=== PATIENT | male | born 1985 | race Asian ===

== ENCOUNTER 2017-04-25 10:18 | Inpatient (IN) | payer MEDICAID ==
[~2017-04-25] VITALS: Ht 165.1 cm; Wt 64.0 kg
[2017-04-25] MEDS ORDERED: normal saline 1000ML IV soln IV ONE (10:30)
[2017-04-25] MEDS ORDERED: metoclopramide 5 mg/ml inj IV ONE (10:30)
[2017-04-25] MEDS ORDERED: ondansetron/PF 4mg/2ml inj IV ONE (10:30)
[2017-04-25] MEDS ORDERED: pantoprazole IV 80 MG in normal saline 100ml IV soln 100 ML IV ONE (10:40)
[2017-04-25] MEDS ORDERED: pantoprazole 40 MG vial IV ONE (10:45)
[2017-04-25 10:59] LABS: BASOPHILS % (AUTO) 0.1 % (0-1); EOSINOPHILS # (AUTO) 0.1 X10'3 (0-0.9); EOSINOPHILS % (AUTO) 0.7 % (0-6); HEMATOCRIT 47.1 % (42.0-52.0); HEMOGLOBIN 16.7 g/dl (14.0-17.9); LYMPHOCYTES # (AUTO) 0.4 X10'3 (1.1-4.8); LYMPHOCYTES % (AUTO) 2.5 % (21-51); MEAN CORPUSCULAR HEMOGLOBIN 31.1 PG (27.0-31.0); MEAN CORPUSCULAR HGB CONC 35.4 % (33.0-36.5); MEAN CORPUSCULAR VOLUME 87.8 FL (78-98); MEAN PLATELET VOLUME 9.2 FL (7.4-10.4); MONOCYTES # (AUTO) 1.1 X10'3 (0-0.9); MONOCYTES % (AUTO) 7.7 % (2-12); NEUTROPHILS # (AUTO) 12.5 X10'3 (1.8-7.7); PLATELET COUNT 303 X10'3 (140-440); RED BLOOD COUNT 5.36 X10'6 (4.70-6.10); RED CELL DISTRIBUTION WIDTH 12.8 % (11.5-14.5)
[2017-04-25 11:08] LABS: PROTHROMBIN TIME 10.5 SECONDS (9.0-12.0)
[2017-04-25] MEDS ORDERED: insulin regular, human 10 units/0.1 ml syringe IV ONE (11:10)
[2017-04-25 11:15] LABS: TOTAL CELLS COUNTED 100
[2017-04-25 11:16] LABS: PLATELET ESTIMATE NORMAL
[2017-04-25 11:19] LABS: ALANINE AMINOTRANSFERASE 38 U/L (12-78); ALBUMIN 3.8 G/DL (3.4-5.0); ALBUMIN/GLOBULIN RATIO 0.8 (1.1-1.5); ALKALINE PHOSPHATASE 73 IU/L (46-116); ANION GAP 33 (8-16); ASPARTATE AMINO TRANSFERASE 34 U/L (10-37); BILIRUBIN,TOTAL 1.3 MG/DL (0.1-1.0); BLOOD UREA NITROGEN 82 MG/DL (7-18); BUN/CREATININE RATIO 30.3 (5.4-32.0); CALCIUM 9.6 MG/DL (8.5-10.1); CHLORIDE 83 MMOL/L (99-107); CREATININE 2.71 MG/DL (0.60-1.10); ETHANOL < 0.010 GM/DL (0.0-0.010); POTASSIUM 4.3 MMOL/L (3.5-5.1); SODIUM 132 MMOL/L (135-145); TOTAL CARBON DIOXIDE 16.3 MMOL/L (24-32); TOTAL PROTEIN 8.5 G/DL (6.4-8.2); TROPONIN I < 0.04 NG/ML (0.0-0.05); eGFR 27 ML/MIN
[2017-04-25 11:21] LABS: GLUCOSE 677 MG/DL (70-104)
[2017-04-25] MEDS ORDERED: potassium Cl 20 mEq SR tablet PO PRN (11:25)
[2017-04-25] MEDS ORDERED: potassium Cl 40MEQ/NS 500ml 500 ML IV PRN ×2 (11:25)
[2017-04-25 11:45] LABS: CLARITY,URINE Clear (Clear); COLOR,URINE Yellow (Yellow); GLUCOSE, URINE >=1000 mg/dl (Neg); KETONES,URINE 80 mg/dl (Neg); LEUKOCYTE ESTERASE ,URINE Negative (Neg); NITRITES, URINE Negative (Neg); OCCULT BLOOD,URINE Moderate (Neg); PROTEIN,URINE 30 mg/dl (Neg); UROBILINOGEN,URINE 0.2 E.U/dL (0.2-1.0)
[2017-04-25 11:47] LABS: UA COLLECTION TYPE CLN CATCH MIDSTREAM
[2017-04-25 11:54] LABS: BACTERIA,URINE NONE SEEN /HPF (Neg); RBC,URINE 0-2 /HPF (0-2); SQUAMOUS EPITHELIAL CELL,UR NONE SEEN /LPF (FEW); WBC,URINE NONE SEEN /HPF (0-4)
[2017-04-25 11:55] LABS: COARSE GRANULAR CAST 0-3 /LPF (NEGATIVE)
[2017-04-25 12:00] LABS: ABG BASE EXCESS -14.7 mmol/L (-2.0-3.0); ABG HCO3 8.9 mmol/L (22.0-26.0); ABG OXYGEN SATURATION 95.2 % (95-98); ABG PCO2 (T) 18.4 mmHg (35.0-48.0); ABG PH (T) 7.301 (7.350-7.450); ABG PO2 (T) 85.4 mmHg (83-108); FCOHb 0.6 % (0.5-1.5); FMetHb 0.3 % (0.3-1.12); FO2Hb 94.3 % (94-100); TOTAL HEMOGLOBIN 15.9 G/dl (14.0-18.0)
[2017-04-25 12:01] LABS: URINE AMPHETAMINE SCREEN NEGATIVE (Neg); URINE BARBITUATE SCREEN NEGATIVE (Neg); URINE BENZODIAZEPINES SCREEN NEGATIVE (Neg); URINE CANNABINOID SCREEN NEGATIVE (Neg); URINE COCAINE SCREEN NEGATIVE (Neg); URINE METHADONE SCREEN NEGATIVE (Neg); URINE OPIATE SCREEN NEGATIVE (Neg); URINE PHENCYCLIDINE SCREEN NEGATIVE (Neg)
[2017-04-25] MEDS: insulin regular, DKA only 100 UNIT in normal saline 100ml IV soln 99 ML IV SCH ×6 (12:25→20:54)
[2017-04-25] MEDS ORDERED: LORazepam 2 mg/ml vial IV ONE (13:05)
[2017-04-25] MEDS ORDERED: normal saline 1000ML IV soln IVB ONE (13:05)
[2017-04-25] MEDS ORDERED: ondansetron/PF 4mg/2ml inj IV PRN (13:15)
[2017-04-25] MEDS ORDERED: thiamine inj. 100 MG in normal saline 100ml IV soln 100 ML IV ONE (13:15)
[2017-04-25] MEDS ORDERED: TETanus/Pertussis (Acell)/Diphther VAC/PF (Tdap-Adult) 0.5ml syringe IM ONE (13:20)
[2017-04-25] MEDS ORDERED: LIDOcaine 1.5% w/epinephrine 1:200,000 5ml ampul IJ ONE (13:20)
[2017-04-25] MEDS ORDERED: LORazepam 2 mg/ml vial IV PRN (13:25)
[2017-04-25] MEDS ORDERED: NO HOME MEDS (16:49)
[2017-04-25] MEDS: dextrose 5%-1/2 normal saline 1,000 ML IV SCH ×2 (16:51→23:15)
[2017-04-25 17:35] LABS: ABG BASE EXCESS -3.5 mmol/L (-2.0-3.0); ABG HCO3 20.1 mmol/L (22.0-26.0); ABG OXYGEN SATURATION 97.1 % (95-98); ABG PCO2 (T) 32.8 mmHg (35.0-48.0); ABG PH (T) 7.406 (7.350-7.450); ABG PO2 (T) 97.4 mmHg (83-108); ALLEN'S TEST Positive; FCOHb 0.7 % (0.5-1.5); FMetHb 0.3 % (0.3-1.12); FO2Hb 96.1 % (94-100); TOTAL HEMOGLOBIN 15.4 G/dl (14.0-18.0)
[2017-04-25 18:02] LABS: HEMOGLOBIN A1C 9.6 % (4.5-6.2)
[2017-04-25 18:17] LABS: ALBUMIN 3.3 G/DL (3.4-5.0); ANION GAP 15 (8-16); BLOOD UREA NITROGEN 55 MG/DL (7-18); BUN/CREATININE RATIO 28.8 (5.4-32.0); CALCIUM 8.5 MG/DL (8.5-10.1); CHLORIDE 105 MMOL/L (99-107); CREATININE 1.91 MG/DL (0.60-1.10); GLUCOSE 183 MG/DL (70-104); SODIUM 146 MMOL/L (135-145); TOTAL CARBON DIOXIDE 25.8 MMOL/L (24-32); eGFR 41 ML/MIN
[2017-04-25 18:21] LABS: POTASSIUM 3.6 MMOL/L (3.5-5.1)
[2017-04-25] MEDS: pantoprazole 40MG/NS 100ML BAG 100 ML IV SCH ×2 (19:13→23:17)
[2017-04-25] MEDS ORDERED: D5-1/2NS w/20 mEq potassium per 1000ml IV ONE (20:05)
[2017-04-25] MEDS ORDERED: Potassium Cl inj 20 MEQ in DEXTROSE 10 % AND 0.45 % NACL 1,000 ML IV SCH (20:25)
[2017-04-25] MEDS ORDERED: Potassium Cl inj 20 MEQ in dextrose 5%-1/2 normal saline 1,000 ML IV SCH (20:25)
[2017-04-25 20:30] VITALS: BP 158/101
[2017-04-25 21:46] LABS: ALBUMIN 2.8 G/DL (3.4-5.0); ANION GAP 15 (8-16); BLOOD UREA NITROGEN 48 MG/DL (7-18); BUN/CREATININE RATIO 28.4 (5.4-32.0); CALCIUM 8.1 MG/DL (8.5-10.1); CHLORIDE 107 MMOL/L (99-107); CREATININE 1.69 MG/DL (0.60-1.10); GLUCOSE 237 MG/DL (70-104); POTASSIUM 3.8 MMOL/L (3.5-5.1); SODIUM 146 MMOL/L (135-145); eGFR 47 ML/MIN
[2017-04-25 22:00] VITALS: BP 132/79
[2017-04-25] MEDS ORDERED: insulin regular, human vial - multi-dose ONE (23:04)
[2017-04-26] VITALS (7 sets, daily range): BP systolic 122–148; BP diastolic 77–92
[2017-04-26 01:55] LABS: ALBUMIN 2.9 G/DL (3.4-5.0); ANION GAP 11 (8-16); BLOOD UREA NITROGEN 36 MG/DL (7-18); BUN/CREATININE RATIO 25.4 (5.4-32.0); CALCIUM 8.2 MG/DL (8.5-10.1); CHLORIDE 111 MMOL/L (99-107); CREATININE 1.42 MG/DL (0.60-1.10); GLUCOSE 103 MG/DL (70-104); POTASSIUM 3.4 MMOL/L (3.5-5.1); SODIUM 149 MMOL/L (135-145); TOTAL CARBON DIOXIDE 27.3 MMOL/L (24-32); eGFR 58 ML/MIN
[2017-04-26] MEDS ORDERED: potassium Cl 20 mEq SR tablet PO STA (02:26)
[2017-04-26] MEDS ORDERED: dextrose ORAL solution 15 GM/59 ML bottle PO PRN ×2 (02:30)
[2017-04-26] MEDS ORDERED: MESSAGE TO PHARMACY PO ONE (02:30)
[2017-04-26] MEDS ORDERED: insulin glargine (Lantus) pen - multi-dose SQ ONE ×2 (02:30→02:45)
[2017-04-26] MEDS ORDERED: dextrose 50%-water 50ml dispensing syringe IV PRN ×2 (02:30)
[2017-04-26] MEDS ORDERED: glucagon, human recombinant 1mg kit SUBCUT PRN (02:30)
[2017-04-26] MEDS ORDERED: sodium chloride 0.45% 1,000 ML IV SCH (02:30)
[2017-04-26] MEDS ORDERED: insulin Lispro (HumaLOG) vial - multi-dose SQ ONE (02:45)
[2017-04-26] MEDS: pantoprazole 40MG/NS 100ML BAG 100 ML IV SCH ×2 (05:47→08:23)
[2017-04-26] MEDS: potassium Cl 20 mEq SR tablet PO PRN (08:22)
[2017-04-26] MEDS: insulin Lispro (HumaLOG) vial - multi-dose SQ SCH ×3 (08:30→19:09)
[2017-04-26 08:50] LABS: BASOPHILS % (AUTO) 0.1 % (0-1); EOSINOPHILS # (AUTO) 0.1 X10'3 (0-0.9); HEMATOCRIT 35.3 % (42.0-52.0); HEMOGLOBIN 12.5 g/dl (14.0-17.9); LYMPHOCYTES # (AUTO) 0.9 X10'3 (1.1-4.8); LYMPHOCYTES % (AUTO) 8.3 % (21-51); MEAN CORPUSCULAR HEMOGLOBIN 31.2 PG (27.0-31.0); MEAN CORPUSCULAR HGB CONC 35.3 % (33.0-36.5); MEAN CORPUSCULAR VOLUME 88.4 FL (78-98); MEAN PLATELET VOLUME 9.1 FL (7.4-10.4); MONOCYTES # (AUTO) 1.1 X10'3 (0-0.9); NEUTROPHILS # (AUTO) 8.2 X10'3 (1.8-7.7); NEUTROPHILS % (AUTO) 79.6 % (42-75); PLATELET COUNT 194 X10'3 (140-440); RED BLOOD COUNT 3.99 X10'6 (4.70-6.10); WHITE BLOOD COUNT 10.3 X10'3 (4.5-11.0)
[2017-04-26 09:14] LABS: ALANINE AMINOTRANSFERASE 28 U/L (12-78); ALBUMIN 2.7 G/DL (3.4-5.0); ALBUMIN/GLOBULIN RATIO 0.8 (1.1-1.5); ALKALINE PHOSPHATASE 46 IU/L (46-116); ANION GAP 11 (8-16); ASPARTATE AMINO TRANSFERASE 46 U/L (10-37); BILIRUBIN,TOTAL 0.7 MG/DL (0.1-1.0); BLOOD UREA NITROGEN 26 MG/DL (7-18); BUN/CREATININE RATIO 20.8 (5.4-32.0); CHLORIDE 106 MMOL/L (99-107); CREATININE 1.25 MG/DL (0.60-1.10); GLUCOSE 261 MG/DL (70-104); MAGNESIUM 2.2 MG/DL (1.5-2.4); PHOSPHORUS 1.9 MG/DL (2.3-4.5); POTASSIUM 4.1 MMOL/L (3.5-5.1); SODIUM 141 MMOL/L (135-145); TOTAL CARBON DIOXIDE 24.2 MMOL/L (24-32); TOTAL PROTEIN 6.1 G/DL (6.4-8.2); eGFR 67 ML/MIN
[2017-04-26] MEDS: HYDROcodone/acetaminophen 5mg/325mg tablet PO PRN ×2 (13:38→20:13)
[2017-04-26] MEDS ORDERED: insulin glargine (Lantus) pen - multi-dose SQ SCH ×2 (21:00)
[2017-04-27 06:00] VITALS: BP 139/85
[2017-04-27 06:02] LABS: BASOPHILS % (AUTO) 0.5 % (0-1); EOSINOPHILS # (AUTO) 0.1 X10'3 (0-0.9); HEMATOCRIT 35.1 % (42.0-52.0); HEMOGLOBIN 12.4 g/dl (14.0-17.9); LYMPHOCYTES # (AUTO) 1.1 X10'3 (1.1-4.8); LYMPHOCYTES % (AUTO) 20.5 % (21-51); MEAN CORPUSCULAR HEMOGLOBIN 31.3 PG (27.0-31.0); MEAN CORPUSCULAR HGB CONC 35.4 % (33.0-36.5); MEAN CORPUSCULAR VOLUME 88.4 FL (78-98); MEAN PLATELET VOLUME 8.8 FL (7.4-10.4); MONOCYTES # (AUTO) 0.6 X10'3 (0-0.9); NEUTROPHILS # (AUTO) 3.5 X10'3 (1.8-7.7); PLATELET COUNT 167 X10'3 (140-440); RED BLOOD COUNT 3.97 X10'6 (4.70-6.10); RED CELL DISTRIBUTION WIDTH 12.7 % (11.5-14.5); WHITE BLOOD COUNT 5.3 X10'3 (4.5-11.0)
[2017-04-27 06:16] LABS: INR 0.9 INR; PROTHROMBIN TIME 9.8 SECONDS (9.0-12.0)
[2017-04-27 06:22] LABS: ALANINE AMINOTRANSFERASE 43 U/L (12-78); ALBUMIN 2.6 G/DL (3.4-5.0); ALBUMIN/GLOBULIN RATIO 0.8 (1.1-1.5); ALKALINE PHOSPHATASE 42 IU/L (46-116); ANION GAP 8 (8-16); ASPARTATE AMINO TRANSFERASE 53 U/L (10-37); BILIRUBIN,TOTAL 0.7 MG/DL (0.1-1.0); BLOOD UREA NITROGEN 13 MG/DL (7-18); BUN/CREATININE RATIO 14.4 (5.4-32.0); CALCIUM 8.1 MG/DL (8.5-10.1); CHLORIDE 103 MMOL/L (99-107); GLUCOSE 117 MG/DL (70-104); MAGNESIUM 2.1 MG/DL (1.5-2.4); PHOSPHORUS 2.2 MG/DL (2.3-4.5); POTASSIUM 3.2 MMOL/L (3.5-5.1); SODIUM 140 MMOL/L (135-145); TOTAL PROTEIN 5.8 G/DL (6.4-8.2); eGFR > 90 ML/MIN
[2017-04-27] MEDS: potassium Cl 20 mEq SR tablet PO PRN ×2 (07:24→13:53)
[2017-04-27 08:00] VITALS: BP_SYST 133; BP_SYST 139; BP_SYST 148; BP_DIAS 89; BP_DIAS 92; BP_DIAS 96
[2017-04-27] MEDS: HYDROcodone/acetaminophen 5mg/325mg tablet PO PRN (08:32)
[2017-04-27] MEDS: insulin Lispro (HumaLOG) vial - multi-dose SQ SCH ×2 (08:36→13:24)
[2017-04-27 11:00] VITALS: BP 139/89
[2017-04-27] MEDS ORDERED: LANTUS SQ (13:37)
[2017-04-27] MEDS ORDERED: INSU100V11 SQ (13:42)
[2017-04-27] MEDS ORDERED: PANT-47 PO (16:42)
== END 2017-04-27 15:05 | disposition home or self-care (01) | DRG 420 ==
LOC: ER 10:18 → ED HOLD 13:13 → PCU 3S 19:26
PROVIDERS: ADMIT Family Medicine; ATTEND Internal Medicine
PROC: 0HQ1XZZ Repair Face Skin, External Approach (ICD-10-PCS; principal; 2017-04-25)
DX: E11.10 Type 2 diabetes mellitus with ketoacidosis without coma (principal); N17.9 Acute kidney failure, unspecified; S01.81XA Laceration without foreign body of other part of head, initial encounter; E86.0 Dehydration; W18.12XA Fall from or off toilet with subsequent striking against object, initial encounter; F10.229 Alcohol dependence with intoxication, unspecified; Z83.3 Family history of diabetes mellitus; Z90.49 Acquired absence of other specified parts of digestive tract; Z91.14 Patient's other noncompliance with medication regimen; Y93.89 Activity, other specified; Y92.89 Other specified places as the place of occurrence of the external cause; Y99.8 Other external cause status; Z56.0 Unemployment, unspecified; Z79.4 Long term (current) use of insulin
CPT/HCPCS: 12011; 36415; 36600; 70450; 80048; 80053; 80305; 80320; 81001; 82140; 82803; 82948; 83036; 83605; 83735; 84100; 84484; 85018; 85025; 85610; 86885; 86900; 86901; 87070; 90715; 93005; 96361; 96374; 96375; 97116; 97162; 97530; 99291; 99292; C9113; J1815; J2060; J2405; J2765; J3411; J3480; J3490; J7030

== ENCOUNTER 2021-10-21 01:17 | Emergency (ER) | payer MEDICAID ==
[~2021-10-21] VITALS: Ht 165.1 cm; Wt 63.6 kg
[~2021-10-21 01:17] MED LIST: INSU100V11 SQ; LANTUS SQ; PANT-47 PO
[2021-10-21 01:19] VITALS: BP 176/124
[2021-10-21] MEDS ORDERED: IBUP-1984 PO (03:05)
== END 2021-10-21 03:10 ==
LOC: ER 01:18
DX: S43.121A Dislocation of right acromioclavicular joint, 100%-200% displacement, initial encounter (principal); E11.9 Type 2 diabetes mellitus without complications; Z56.0 Unemployment, unspecified; Z90.49 Acquired absence of other specified parts of digestive tract; Z79.1 Long term (current) use of non-steroidal anti-inflammatories (NSAID); Z79.84 Long term (current) use of oral hypoglycemic drugs; X58.XXXA Exposure to other specified factors, initial encounter; Y93.89 Activity, other specified; Y92.89 Other specified places as the place of occurrence of the external cause; Y99.8 Other external cause status
CPT/HCPCS: 73000; 73030; 99284; A4565

== ENCOUNTER 2022-11-12 23:28 | Emergency (ER) | payer SELFPAY ==
[~2022-11-12] VITALS: Ht 160 cm; Wt 63.6 kg
[2022-11-12 23:29] VITALS: TEMP 98.7
[2022-11-13] MEDS ORDERED: normal saline 1000ML IV soln IVB ONE ×2 (00:25→01:20)
[2022-11-13 01:09] LABS: HEMOGLOBIN 13.8 g/dl (14.0-17.9)
[2022-11-13 01:11] LABS: BASOPHILS # (AUTO) 0.1 X10'3 (0-0.2); BASOPHILS % (AUTO) 1.3 % (0-1); EOSINOPHILS % (AUTO) 0.1 % (0-6); HEMATOCRIT 40.2 % (42.0-52.0); LYMPHOCYTES # (AUTO) 1.6 X10'3 (1.1-4.8); LYMPHOCYTES % (AUTO) 17.6 % (21-51); MEAN CORPUSCULAR HEMOGLOBIN 28.9 PG (27.0-31.0); MEAN CORPUSCULAR HGB CONC 34.3 g/dL (33.0-36.5); MEAN CORPUSCULAR VOLUME 84.3 FL (78-98); MEAN PLATELET VOLUME 8.2 FL (7.4-10.4); MONOCYTES # (AUTO) 0.3 X10'3 (0-0.9); MONOCYTES % (AUTO) 3.3 % (2-12); NEUTROPHILS % (AUTO) 77.7 % (42-75); PLATELET COUNT 375 X10'3 (140-440); RED BLOOD COUNT 4.77 X10'6 (4.70-6.10); WHITE BLOOD COUNT 8.9 X10'3 (4.5-11.0)
[2022-11-13 01:19] LABS: ALANINE AMINOTRANSFERASE 15 U/L (12-78); ALBUMIN 4.1 G/DL (3.4-5.0); ALKALINE PHOSPHATASE 78 IU/L (46-116); ANION GAP 13 (8-16); BILIRUBIN,TOTAL 0.3 MG/DL (0.1-1.0); BLOOD UREA NITROGEN 17 MG/DL (7-18); BUN/CREATININE RATIO 12.4 (10.0-20.0); CALCIUM 8.8 MG/DL (8.5-10.1); CHLORIDE 95 MMOL/L (99-107); CREATININE 1.37 MG/DL (0.60-1.10); SODIUM 131 MMOL/L (135-145); TOTAL CARBON DIOXIDE 22.7 MMOL/L (24-32); TOTAL PROTEIN 8.4 G/DL (6.4-8.2); eCRCL 59 ML/MIN; eGFR 58 ML/MIN
[2022-11-13 01:47] LABS: GLUCOSE 471 MG/DL (70-104); POTASSIUM 4.3 MMOL/L (3.5-5.1)
[2022-11-13 01:48] LABS: ASPARTATE AMINO TRANSFERASE 18 U/L (10-37)
[2022-11-13 02:36] VITALS: BP 139/98; PULSE 102; RESP 16; O2SAT 97
[2022-11-13] MEDS ORDERED: insulin regular, human 10 units/0.1 ml syringe IV ONE (02:45)
[2022-11-13] MEDS ORDERED: METF-900 PO (03:04)
== END 2022-11-13 03:53 | disposition home or self-care (01) ==
LOC: ER 23:29
DX: E11.65 Type 2 diabetes mellitus with hyperglycemia (principal); Z90.49 Acquired absence of other specified parts of digestive tract; Z59.00 Homelessness unspecified; Z79.4 Long term (current) use of insulin; Z79.899 Other long term (current) drug therapy
CPT/HCPCS: 36415; 80053; 82948; 85025; 99283; J7030